=== PATIENT | male | born 1980 | race Two or more races ===

== ENCOUNTER 2018-08-06 18:42 | Emergency (ER) | payer MEDICAID ==
[~2018-08-06] VITALS: Ht 177.8 cm; Wt 118.8 kg
[2018-08-06] MEDS ORDERED: SUMA50TA PO (18:52)
--- NOTE | 2018-08-06 18:54 | NUR ---
PT A/OX4, PRESENTS TO THE ER C/O HEADACHE X 1 WEEK. PT REPORTS HE WAS SEEN IN THE [facility] YESTERDAY FOR THE SAME REPORT BUT HAS NOT HAD RELIEF. NO FACIAL DROOP, NO FACIAL DROOP, NO HEMILATERAL WEAKNESS, BILATERAL EYES PERRLA, ABLE TO AMBULATE W/O DIFFICULTY. VS WNL. PT DENIES C/P, SOB, N/V/D.
--- NOTE | 2018-08-06 19:00 | NUR ---
KAYLI MENDOZA AT BEDSIDE FOR MSE.
--- NOTE | 2018-08-06 19:06 | NUR ---
SHIFT REPORT GIVEN TO ANIBAL Dc RN. PT RESTING COMFORTABLY IN BED. AWAITING ORDERS FROM ER .
[2018-08-06] MEDS ORDERED: METOCLOPRAMIDE HCL 10 MG/2 ML VIAL IV ONE (19:15)
[2018-08-06] MEDS ORDERED: IV NORMAL SALINE 1000 ML BAG IV ONE (19:15)
[2018-08-06] MEDS ORDERED: KETOROLAC TROMETHAMINE 30 MG INJ IVP ONE (19:15)
--- NOTE | 2018-08-06 19:15 | NUR ---
ASSUMED CARE OF PATIENT FROM Blanca DIAZ
--- NOTE | 2018-08-06 19:17 | NUR ---
Patient came in with c/o R sided headaches for one week. Patient stated that he is not feeling better even after seeing the urgent care provider yesterday for same complaint. Here for further evaluation. Patient AAOX4. In no respiratory distress. Denies any SOB. No cardiovascular concern. No /GI concern. Bed on lock position. Fall precaution per protocol.
[2018-08-06] MEDS ORDERED: KETOROLAC TROMETHAMINE 30 MG INJ ONE (19:22)
[2018-08-06] MEDS ORDERED: METOCLOPRAMIDE HCL 10 MG/2 ML VIAL ONE (19:22)
--- NOTE | 2018-08-06 19:58 | NUR ---
KAYLI MENDOZA at bedside.
[2018-08-06] MEDS ORDERED: ONDANSETRON IV *ER 4 MG/2 ML VIAL IV ONE (20:00)
[2018-08-06] MEDS ORDERED: MORPHINE SULFATE 2 MG/1 ML DISP.SYRIN IV ONE (20:00)
[2018-08-06] MEDS ORDERED: diphenhydrAMINE 50 MG/1 ML VIAL IV ONE (20:00)
[2018-08-06] MEDS ORDERED: diphenhydrAMINE 50 MG/1 ML VIAL ONE (20:08)
[2018-08-06] MEDS ORDERED: MORPHINE SULFATE 2 MG/1 ML DISP.SYRIN ONE (20:08)
[2018-08-06] MEDS ORDERED: ONDANSETRON 4 MG/2 ML VIAL ONE (20:08)
--- NOTE | 2018-08-06 20:41 | NUR ---
Patient asleep but easily arouse to verbal stimuli. Patient reported headache now 2/10. In no acute distress. VSS.
--- NOTE | 2018-08-06 21:26 | NUR ---
KAYLI MENDOZA at bedside.
--- NOTE | 2018-08-06 21:31 | NUR ---
Patient discharged to home in stable conditon. Written and verbal after care instructions given. Patient verbalizes understanding of instructions. Removed IV on right AC. Patient ambulated from ER with steady gait. All belongings with patient.
[2018-08-06 21:32] VITALS: BP 126/78
== END 2018-08-06 21:33 | disposition home or self-care (01) ==
LOC: ER 18:44
DX: G43.909 Migraine, unspecified, not intractable, without status migrainosus (principal); F17.210 Nicotine dependence, cigarettes, uncomplicated; Z79.899 Other long term (current) drug therapy
CPT/HCPCS: 96374; 96375; 99283; J1200; J1885; J2270; J2405; J2765; A4663; J7030

== ENCOUNTER 2021-10-03 05:06 | Emergency (ER) | payer SELFPAY ==
[~2021-10-03] VITALS: Ht 180.3 cm; Wt 122.5 kg
[~2021-10-03 05:06] MED LIST: SUMA50TA PO
--- NOTE | 2021-10-03 05:15 | NUR ---
pt in room 4a states he has a headache since monday.
--- NOTE | 2021-10-03 05:21 | NUR ---
Dr. Mcmullen at bedside for MSE.
[2021-10-03] MEDS ORDERED: MORPHINE SULFATE 2 MG/1 ML DISP.SYRIN IV ONE (05:30)
[2021-10-03] MEDS ORDERED: METOCLOPRAMIDE HCL 10 MG/2 ML VIAL IV ONE (05:30)
[2021-10-03] MEDS ORDERED: KETOROLAC TROMETHAMINE 30 MG INJ IVP ONE (05:30)
[2021-10-03] MEDS ORDERED: diphenhydrAMINE 50 MG/1 ML VIAL IV ONE (05:30)
--- NOTE | 2021-10-03 05:38 | NUR ---
pt placed on NRBM per request of Dr. Mcmullen.
[2021-10-03] MEDS ORDERED: diphenhydrAMINE 50 MG/1 ML VIAL ONE (05:39)
[2021-10-03] MEDS ORDERED: KETOROLAC TROMETHAMINE 30 MG INJ ONE (05:39)
[2021-10-03] MEDS ORDERED: METOCLOPRAMIDE HCL 10 MG/2 ML VIAL ONE (05:39)
[2021-10-03] MEDS ORDERED: MORPHINE SULFATE 2 MG/1 ML DISP.SYRIN ONE (05:40)
[2021-10-03] MEDS ORDERED: IV NS 1000 ML 1,000 ML IV ONE (05:45)
--- NOTE | 2021-10-03 06:03 | NUR ---
pt went to cat scan.
--- NOTE | 2021-10-03 06:13 | NUR ---
pt returned from cat scan.
[2021-10-03] MEDS ORDERED: NAPR-1009 PO (06:54)
--- NOTE | 2021-10-03 07:05 | NUR ---
Patient discharged to home in stable condition. Written and verbal after care instructions given. Patient verbalizes understanding of instructions. Stressed follow up or return to ER for worsening s/s.
[2021-10-03 07:06] VITALS: BP 140/80
[2021-10-04] MEDS ORDERED: DIPH25CA83 PO (21:12)
[2021-10-04] MEDS ORDERED: NAPR-1164 PO (21:12)
[2021-10-04] MEDS ORDERED: METO-295 PO (21:12)
== END 2021-10-03 07:06 | disposition home or self-care (01) ==
LOC: ER 05:19
DX: R51.9 Headache, unspecified (principal); Z72.0 Tobacco use; Z88.0 Allergy status to penicillin
CPT/HCPCS: 99284; 96374; 96375; 70450; 96361; J1200; J1885; J2765; J2270; J7040; A4663

== ENCOUNTER 2021-10-04 17:06 | Emergency (ER) | payer SELFPAY ==
[~2021-10-04] VITALS: Ht 177.8 cm; Wt 117.9 kg
[~2021-10-04 17:06] MED LIST changes: +NAPR-1009 PO
--- NOTE | 2021-10-04 18:38 | NUR ---
Strong equal ticket broker, dorsi/pedi flexion, symetrical smile, eyes okay.
[2021-10-04] MEDS ORDERED: diphenhydrAMINE 50 MG/1 ML VIAL IV ONE (19:00)
[2021-10-04] MEDS ORDERED: KETOROLAC TROMETHAMINE 30 MG INJ IVP ONE (19:00)
[2021-10-04] MEDS ORDERED: IV NS 1000 ML 1,000 ML IV ONE (19:00)
[2021-10-04] MEDS ORDERED: METOCLOPRAMIDE HCL 10 MG/2 ML VIAL IV ONE (19:00)
[2021-10-04] MEDS ORDERED: CLONIDINE HCL 0.1 MG TABLET PO ONE (19:00)
[2021-10-04 19:20] LABS: HEMATOCRIT 40.7 % (36.7-47.1); MEAN CORPUSCULAR HEMOGLOBIN 29.8 uug (23.8-33.4); MEAN CORPUSCULAR VOLUME 86.1 fL (73.0-96.2); PLATELET COUNT (AUTO) 339 K/uL (152-348)
[2021-10-04 19:24] LABS: CREATININE 0.8 mg/dL (0.6-1.3); MAGNESIUM 1.9 mg/dL (1.8-2.4); POTASSIUM 3.8 mmol/L (3.5-5.1)
[2021-10-04] MEDS ORDERED: KETOROLAC TROMETHAMINE 30 MG INJ ONE (19:30)
[2021-10-04] MEDS ORDERED: METOCLOPRAMIDE HCL 10 MG/2 ML VIAL ONE (19:30)
[2021-10-04] MEDS ORDERED: diphenhydrAMINE 50 MG/1 ML VIAL ONE (19:30)
[2021-10-04] MEDS ORDERED: CLONIDINE HCL 0.1 MG TABLET ONE (19:31)
[2021-10-04] MEDS ORDERED: MAGNESIUM SULFATE/D5W 200 ML ONE (19:56)
[2021-10-04] MEDS: MAGNESIUM SULFATE/D5W 100 ML IV SCH ×2 (20:03→20:28)
[2021-10-04] MEDS ORDERED: METO-295 PO (21:12)
[2021-10-04] MEDS ORDERED: DIPH25CA83 PO (21:12)
[2021-10-04] MEDS ORDERED: NAPR-1164 PO (21:12)
[2021-10-04 21:39] VITALS: BP 130/82
== END 2021-10-04 21:39 | disposition home or self-care (01) ==
LOC: ER 17:07
DX: G43.909 Migraine, unspecified, not intractable, without status migrainosus (principal); E66.9 Obesity, unspecified; Z68.37 Body mass index [BMI] 37.0-37.9, adult; I10 Essential (primary) hypertension; Z88.0 Allergy status to penicillin
CPT/HCPCS: 99284; 96365; 96375; 80048; 83735; 85025; 36415; J1200; J1885; J3475; J2765; J7040; A4663